=== PATIENT | female | born 1940 | race Caucasian/White ===

== ENCOUNTER → 2016-11-01 | Outpatient (CLI) | payer MEDICARE, BC ==
[~2016-11-01] MED LIST: ADVAIR 2501 DISK W/D PO; ALBUTEROL MININEB NEB; ASPIRIN PO; BENTYL10 M1 PO; BREO ELLIPTA 11 EACH INH; CALCIUM W/VITAM1 TA5 PO; CRANBERRY500 M1 PO; MULTI-VITAMIN1 EAC1 PO; PRILOSEC PO; SINGULAIR PO; ZESTRIL5 MG PO; ZYRTEC PO
--- NOTE | ~2016-11-01 | CT17 ---
[facility] A Service of [facility] RADIOLOGY TEXT RESULTS PATIENT: JACOBO SANTIAGO LOCATION: CCAT : 44 UNIT #: [id number] AGE: [address]: LULÚ ÁLVAREZ MD SEX: F ORDER DR: [id number] [place], [place] [address] [id number] O MR#: [id number] Acc #: [id number] NAME: JACOBO SANTIAGO : 1940 SEX: F STUDY DATE/TIME: 11/01/2016 14:42 UNIT: [facility] ROOM: STUDY DESCRIPTION: CT Angio Head Attending Physician: Lulú Álvarez M.D. Referring Physician: Lulú Álvarez M.D. Ordering Physician: Lulú Álvarez M.D. Primary Care Physician: Hai Tamayo M.D. MEDICAL IMAGING REPORT This report is preliminary unless electronic signature is present EXAM Head CT angiogram COMPARISON Head MRA 11/18/2014 PROCEDURE Axial contrast-enhanced head CT angiogram with three-dimensional reformats. This CT exam was performed with one or more of the following radiation dose reduction techniques: automatic exposure control, adjustment of mA and/or kV according to patient size, and iterative reconstruction. HISTORY Followup left ICA aneurysms. FINDINGS No interval change in the appearance of the left internal carotid. There are probably two small aneurysms including one posterior communicator origin region aneurysm measuring about 2 mm in maximal dimension and a medially directed aneurysm about 2 mm in size as well. Both are stable when compared to the MRA of 11/18/2014. No new aneurysms are seen. There is overall symmetric intracranial vascularity. IMPRESSION Two tiny 2 mm stable left ICA aneurysms, no change since 11/18/2014. No new abnormality. Dictated by... Tyron Torres M.D. [facility] A Service [facility] RADIOLOGY TEXT RESULTS PATIENT: JACOBO SANTIAGO LOCATION: CCAT : 42 UNIT #: [id number] AGE: [address]: LULÚ ÁLVAREZ MD SEX: F ORDER DR: THIS IS AN ELECTRONICALLY VERIFIED REPORT Tyron Torres M.D. at 11/03/2016 5:07 PM TEV/be TD: 11/01/2016 21:44 JOB #: [id number] MEDICAL IMAGING REPORT Page 1 of 1 COPY
[2016-11-01 15:51] LABS: POC - CREATININE 0.88 mg/dL (0.44-1.03); POC - GFR >60.0 mL/min (>60)
== END | disposition home or self-care (01) ==
LOC: CCAT 13:29
PROVIDERS: Psychiatry & Neurology Clinical Neurophysiology
DX: I67.1 Cerebral aneurysm, nonruptured (principal); R94.02 Abnormal brain scan
CPT/HCPCS: 70496; 82565; Q9967